=== PATIENT | male | born 1970 | race African-American/Black ===

== ENCOUNTER 2017-01-20 03:22 | Emergency (ER) | payer BC ==
[~2017-01-20] VITALS: Ht 180.3 cm; Wt 77.0 kg
[~2017-01-20 03:22] MED LIST: Z.0.NO CURRENT MEDS
[2017-01-20 03:24] VITALS: BP 198/129; PULSE 93; RESP 16; TEMP 98.6; O2SAT 98
[2017-01-20] MEDS ORDERED: TETANUS/DIPHTHERIA TOXOID ADULT 0.5 ML VIAL IM ONE (03:45)
[2017-01-20] MEDS ORDERED: CEPH-460 PO (04:15)
[2017-01-20] MEDS ORDERED: IBUP800T23 PO (04:15)
[2017-01-20] MEDS ORDERED: CEPHALEXIN MONOHYDRATE 500 MG CAP PO ONE (04:15)
--- NOTE | 2017-01-20 04:15 | PD ---
HPI Chief Complaint: Laceration/Skin Injury Time Seen by Provider: 03:40 Travel History International Travel<30 days: No Contact w/Intl Traveler<30days: No Traveled to known affect area: No History of Present Illness HPI Patient is a 46-year-old male presenting to him or chart for evaluation of the laceration to his right fourth finger. Patient was leaving for work when he tripped on the [employer] department subsequent to cutting his finger. He denies any pain at this time. He states that the injury occurred just prior to arrival. His tetanus vaccine is not up-to-date. He denies any other injuries related to the fall. [facility] Past Medical History Medical History: Denies Significant Hx Diminished Hearing: No Social History Alcohol Use: Yes (6 PACK [employer]ER/DAY) Tobacco Use: No Substance Use: No Allergies-Medications (Allergen,Severity, Reaction): Coded Allergies: No Known Allergies (Verified , 01/20/17) Reported Meds & Prescriptions Reported Meds & Active Scripts Active Ibuprofen 800 Mg Tab 800 Mg PO Q6HR PRN Keflex (Cephalexin) 500 Mg Cap 500 Mg PO Q12H 7 Days Review of Systems Except as stated in HPI: all other systems reviewed are Neg Skin: Positive Other (laceration) Physical Exam Narrative GENERAL: Well-developed, well-nourished, alert male. Resting comfortably in no acute distress. SKIN: Warm and dry. 2 cm laceration to the palmar aspect of the right fourth finger from the DIP joint to the fingertip. Brisk less than 3 second capillary refill. HEAD: Normocephalic. EYES: No scleral icterus. No injection or drainage. NECK: Supple, trachea midline. No JVD or lymphadenopathy. CARDIOVASCULAR: Regular rate and rhythm without murmurs, gallops, or rubs. RESPIRATORY: Breath sounds equal bilaterally. No accessory muscle use. GASTROINTESTINAL: Abdomen soft, non-tender, nondistended. MUSCULOSKELETAL: No cyanosis, or edema. Full range of motion in right hand and fingers. 2+ radial pulse. BACK: Nontender without obvious deformity. No CVA tenderness. Data Data Last Documented VS Vital Signs Date Time Temp Pulse Resp B/P (MAP) Pulse Ox O2 Delivery O2 Flow Rate FiO2 01/20/17 04:14 01/20/17 03:24 98.6 93 16 98 Room Air Orders Orders Tetanus/Diphtheria Tox Adult (Tetanus/Di (01/20/17 03:45) Wound Care (01/20/17 04:11) Support Splint (01/20/17 04:11) Ed Discharge Order (01/20/17 04:12) Cephalexin (Keflex) (01/20/17 04:15) MDM Medical Decision Making Medical Screen Exam Complete: Yes Emergency Medical Condition: Yes Interpretation(s) Vital Signs Date Time Temp Pulse Resp B/P (MAP) Pulse Ox O2 Delivery O2 Flow Rate FiO2 01/20/17 04:14 01/20/17 03:24 98.6 93 16 198/129 (152) 98 Room Air Differential Diagnosis Laceration versus contusion versus abrasion versus less likely fracture versus other Narrative Course Patient presented for evaluation of a laceration to his left fourth finger. Patient is neurovascularly intact with no focal deficits. Please see procedure report for laceration repair. Patient's tetanus vaccine was updated in the emergency department, he was given first dose of Keflex. He was placed in a sterile bandage and finger splint. He was given strict return precautions. He was advised the signs and symptoms of infection as well as neurovascular compromise. Patient verbalized understanding of these instructions. Patient is stable for discharge. BP was elevated on arrival, he has no history of hypertension. BP was reassessed prior to discharge it had trended down slightly. This was discussed with my attending physician. Patient was advised to follow-up with a primary doctor. Patient does not have one so he was given information regarding clinic. Patient was also educated on hypertension and the risks that accompany uncontrolled hypertension. Patient verbalized understanding or shock shins. Patient stable for discharge. Procedures Procedure Narrative LACERATION LOCATION: Right fourth finger from the DIP joint distal LENGTH: Approximately 2 cm NUMBER OF STITCHES/OSEI: Well stitches REPAIR: The area of the laceration was prepped with Betadine and sterilely draped. The laceration was infiltrated with Bupivacaine. The wound was copiously irrigated and explored without evidence of foreign body, tendon injury or neurovascular injury. The wound was closed using 4-0 Prolene. This was a 1 layer repair. A sterile dressing was applied. The patient was advised to keep the dressing clean and dry. Patient tolerated the procedure well. Diagnosis Primary Impression: Laceration of finger Qualified Codes: S61.214A - Laceration without foreign body of right ring finger without damage to nail, initial encounter Referrals: Primary Care Physician Patient Instructions: Care For Your Stitches (ED), Finger Laceration (ED), General Instructions Additional Instructions: Keep sutures clean and dry, cover with topical antibiotic ointment and clean dressing and finger cage Stitches will need to come out in 10 days can be done in the emergency room or with your primary doctor Return to emergency department immediately for any new or worsening symptoms Complete full course of antibiotics as prescribed Ibuprofen as needed and as directed for pain Med/Other Pt SpecificInfo: Prescription(s) given Scripts Ibuprofen (Ibuprofen) 800 Mg Tab 800 MG PO Q6HR Y for PAIN, #40 TAB 0 Refills Prov: Joann Cline 01/20/17 Cephalexin (Keflex) 500 Mg Cap 500 MG PO Q12H for Infection for 7 Days, #14 CAP 0 Refills Prov: Joann Cline 01/20/17 Disposition: 01 DISCHARGE HOME Condition: Stable Joann Cline Jan 20, 2017 04:15
[2017-01-20 04:30] VITALS: BP_SYST 188; BP_SYST 198; BP_DIAS 122; BP_DIAS 126
== END 2017-01-20 04:39 | disposition home or self-care (01) ==
LOC: NEPD 03:22
DX: S61.214A Laceration without foreign body of right ring finger without damage to nail, initial encounter (principal); W01.198A Fall on same level from slipping, tripping and stumbling with subsequent striking against other object, initial encounter; Y93.01 Activity, walking, marching and hiking; Y99.0 Civilian activity done for income or pay; Z23 Encounter for immunization
CPT/HCPCS: 12001; 90471; 90714